=== PATIENT | female | born 1990 | race African-American/Black ===

== ENCOUNTER 2017-10-20 14:12 | Emergency (ER) | payer SELFPAY ==
[~2017-10-20] VITALS: Ht 162.6 cm; Wt 64.0 kg
[2017-10-20] MEDS ORDERED: ACETAMINOPHEN 325MG TABLET PO ONE (15:45)
[2017-10-20 18:03] VITALS: BP 101/58
== END 2017-10-20 18:03 | disposition home or self-care (01) ==
LOC: ER 14:35
DX: S00.83XA Contusion of other part of head, initial encounter (principal); R07.81 Pleurodynia; S80.01XA Contusion of right knee, initial encounter; M25.562 Pain in left knee; Y07.03 Male partner, perpetrator of maltreatment and neglect; Y04.2XXA Assault by strike against or bumped into by another person, initial encounter; Y93.89 Activity, other specified; Y92.89 Other specified places as the place of occurrence of the external cause
CPT/HCPCS: 70450; 71101; 72125; 73560; 99284

== ENCOUNTER 2023-12-17 09:33 | Emergency (ER) | payer MEDICAID ==
[~2023-12-17] VITALS: Ht 170.2 cm; Wt 75.0 kg
[2023-12-17 09:37] VITALS: TEMP 98.3; O2SAT 99
[2023-12-17 10:42] LABS: CLARITY URINE CLEAR (CLEAR); COLOR URINE DARK YELLOW (YELLOW); GLUCOSE URINE NEGATIVE (NEGATIVE); KETONES URINE TRACE (NEGATIVE); LEUKOCYTE ESTERASE URINE NEGATIVE (NEGATIVE); NITRITE URINE NEGATIVE (NEGATIVE); OCCULT BLOOD URINE NEGATIVE (NEGATIVE); PH URINE 6.5 (4.5-8.0); PROTEIN URINE 1+ (NEGATIVE); SPECIFIC GRAVITY URINE 1.035 (1.005-1.030)
[2023-12-17 11:13] LABS: BACTERIA URINE TRACE; MUCUS URINE 1+ /lpf (< = 2+); RBC URINE 0-2 /hpf (0-2); SQUAMOUS EPITHELIAL CELL URINE 2+ /lpf (RARE/1+); WBC URINE 0-2 /hpf (0-2); YEAST URINE NONE SEEN
[2023-12-17] MEDS ORDERED: FAMOTIDINE 20MG/2ML VIAL IV ONE (11:15)
[2023-12-17] MEDS ORDERED: METOCLOPRAMIDE HCL 10MG/2ML VIAL IV ONE (11:15)
[2023-12-17 11:25] LABS: BASOPHILS % 0.5 % (0.0-2.0); DIFFERENTIAL COMMENT 0; EOSINOPHILS % 0.1 % (0.0-5.0); HEMATOCRIT. 41.3 % (36.0-48.0); HEMOGLOBIN. 13.8 g/dL (12.0-16.0); LYMPHOCYTES % 27.2 % (20.0-50.0); MEAN CORPUSCULAR HEMOGLOBIN 27.5 pg (28.0-32.0); MEAN CORPUSCULAR HGB CONC 33.5 g/dL (31.0-37.0); MEAN CORPUSCULAR VOLUME 82.1 fL (81.0-99.0); MEAN PLATELET VOLUME 8.8 fl (7.4-10.4); MONOCYTES % 10.3 % (2.0-8.0); NEUTROPHILS % 61.9 % (40.0-76.0); PLATELET 198 x1000/uL (130-400); RED BLOOD CELL COUNT 5.02 mill/uL (4.2-5.4); RED CELL DISTRIBUTION WIDTH 14.5 % (11.6-14.6); WHITE BLOOD COUNT 6.9 x1000/uL (4.5-11.0)
[2023-12-17 11:33] LABS: CHLORIDE 104 mEq/L (98-107); POTASSIUM 3.8 mEq/L (3.5-5.1); SODIUM 136 mEq/L (136-145)
[2023-12-17 11:34] LABS: CALCIUM 9.9 mg/dL (8.7-10.4); CARBON DIOXIDE 25 mEq/L (21-32)
[2023-12-17 11:39] LABS: CREATININE 0.7 mg/dL (0.6-1.0); GLUCOSE 99 mg/dL (70-105)
[2023-12-17 11:41] LABS: ALANINE AMINOTRANSFERASE 15 IU/L (10-49); ALBUMIN 4.7 g/dL (3.2-4.8); ASPARTATE AMINOTRANSFERASE 16 IU/L (<34)
[2023-12-17 11:42] LABS: BILIRUBIN TOTAL 0.3 mg/dL (0.1-1.0); PROTEIN TOTAL 7.8 g/dL (6.0-8.3)
[2023-12-17 12:14] LABS: B-HCG QUANTITATIVE 117483 mIU/mL (<3); UREA NITROGEN BLOOD < 5 mg/dL (9-23)
[2023-12-17] MEDS: ACETAMINOPHEN 1000MG/100ML 100 ML IV ONE (13:43)
[2023-12-17] MEDS: METOCLOPRAMIDE HCL 10MG/2ML VIAL IV NR (13:44)
[2023-12-17] MEDS: FAMOTIDINE 20MG/2ML VIAL IV NR (13:44)
[2023-12-17] MEDS ORDERED: TOPUD PO (14:43)
[2023-12-17 15:01] VITALS: BP 112/72; PULSE 68; RESP 16; O2SAT 98
== END 2023-12-17 15:02 | disposition home or self-care (01) ==
LOC: ER 09:33
DX: O26.891 Other specified pregnancy related conditions, first trimester (principal); F12.90 Cannabis use, unspecified, uncomplicated; Z98.890 Other specified postprocedural states; Z3A.08 8 weeks gestation of pregnancy
CPT/HCPCS: 80053; 81003; 81025; 84702; 83690; 85025; 36415; 76705; 76801; 76817; 96365; 96375; 99285; J3490; J2765; Z7610; J0131